=== PATIENT | female | born 1985 | race Caucasian/White ===

== ENCOUNTER → 2019-10-08 | Outpatient (CLI) | payer OTHER ==
--- NOTE | 2019-10-08 11:03 | RADIOLOGY REPORT (SQ) ---
EXAM DESCRIPTION: NOSE/NASAL BONES COMPLETED DATE/TIME: 10/08/2019 9:31 am REASON FOR STUDY: UNSPECIFIED INJURY OF NOSE, INITIAL ENCOUNTER S09.92XA UNSPECIFIED INJURY OF NOSE , INITIAL ENCOUNTER COMPARISON: None. NUMBER OF VIEWS: Three view. TECHNIQUE: Images of the facial bones acquired. LIMITATIONS: None. FINDINGS: ORBITS: No fracture. No foreign body. SINUSES: No mucosal thickening. No air fluid levels. FACIAL BONES: No fracture. OTHER: No other significant finding. IMPRESSION: NO FOREIGN BODY OR FRACTURE OF THE FACIAL BONES. TECHNICAL DOCUMENTATION: JOB ID: [id number] [employer].- All Rights Reserved Reading location - IP/workstation name: [email or web address]
== END ==
LOC: OD 09:01
PROVIDERS: ATTEND Family Medicine
DX: S09.92XA Unspecified injury of nose, initial encounter (principal); X58.XXXA Exposure to other specified factors, initial encounter
CPT/HCPCS: 70160

== ENCOUNTER 2020-11-06 16:36 | Observation (INO) | payer OTHER ==
[2020-11-06] MEDS ORDERED: LORAZEPAM INJ 2 MG/1 ML VIAL IV ONE (17:11)
--- NOTE | 2020-11-06 17:13 | ER Document Report ---
ED Medical Screen (RME) - General Chief Complaint: Tremor Stated Complaint: POSSIBLE SYNCOPE, TREMORS Time Seen by Provider: 11/06/20 17:09 Primary Care Provider: ROSIE SANDOVAL MD [Primary Care Provider] - Follow up as needed Mode of Arrival: Wheelchair Information source: Parent Cannot obtain history due to: Altered mental status TRAVEL OUTSIDE OF THE [place] IN LAST 30 DAYS: No - HPI Patient complains to provider of: seizure Notes: 11/06/20 17:12 Patient here with mother at the bedside. I was called out to the waiting room she was sitting in a wheelchair having seizure-like activity. According to the mother, the patient had a spinal stimulator placed about a year ago. Apparently she had 1 seizure-like activity after having a spinal stimulator placed but none since. She has no history of epilepsy is not on antiepileptic drugs. She apparently had a seizure prior to arrival and then had another seizure while in the waiting room. Patient was noted to have generalized tonic-clonic shaking and was unconscious. She woke up she appeared to be confused. Patient was then immediately taken back to an ER room where she will be seen and evaluated by another provider for further evaluation and management. Exam: Patient noted to be having seizure-like activity out in the waiting room. Generalized tonic-clonic activity was noted. This lasted for approximately 1 to 2 minutes. Patient was confused after this incident. No respiratory distress. An initial examination was made on the patient as part of the triage process, and it was determined a more comprehensive evaluation was necessary. Initial orders were placed and patient was transferred to another provider in the ED who assumed care and finished evaluation and plan. Doctor's Discharge - Discharge Referrals: ROSIE SANDOVAL MD [Primary Care Provider] - Follow up as needed
[2020-11-06 17:42] LABS: ABSOLUTE EOSINOPHILS # (AUTO) 0.1 10^3/uL (0.0-0.6); ABSOLUTE LYMPHOCYTES (AUTO) 2.6 10^3/uL (0.5-4.7); ABSOLUTE MONOCYTES (AUTO) 0.5 10^3/uL (0.1-1.4); ABSOLUTE NEUT (AUTO) 3.4 10^3/uL (1.7-8.2); BASOPHILS % (AUTO) 0.7 % (0-2); EOSINOPHILS % (AUTO) 2.2 % (0-6); HEMATOCRIT 39.9 % (36.0-47.0); HEMOGLOBIN 13.7 g/dL (12.0-15.5); LYMPHOCYTES % (AUTO) 38.1 % (13-45); MEAN CORPUSCULAR HEMOGLOBIN 29.7 pg (27.0-33.4); MEAN CORPUSCULAR HGB CONC 34.4 g/dL (32.0-36.0); MEAN CORPUSCULAR VOLUME 87 fl (80-97); MONOCYTES % (AUTO) 7.7 % (3-13); PLATELET COUNT 275 10^3/uL (150-450); RED BLOOD COUNT 4.61 10^6/uL (3.72-5.28); RED CELL DISTRIBUTION WIDTH 13.8 % (11.5-14.0); SEGMENTED NEUTROPHILS % (AUTO) 51.3 % (42-78); TOTAL CELLS COUNTED % (AUTO) 100 %; WHITE BLOOD COUNT 6.7 10^3/uL (4.0-10.5)
--- NOTE | 2020-11-06 17:52 | RADIOLOGY REPORT (SQ) ---
EXAM DESCRIPTION: CT HEAD WITHOUT IMAGES COMPLETED DATE/TIME: 11/06/2020 5:43 pm REASON FOR STUDY: Seizure COMPARISON: None. TECHNIQUE: Axial images acquired through the brain without intravenous contrast. Images reviewed wi th bone, brain and subdural windows. Additional sagittal and coronal reconstructions were generated. Images stored on PACS. All CT scanners at this facility use dose modulation, iterative reconstruction, and/or weight based d osing when appropriate to reduce radiation dose to as low as reasonably achievable (ALARA). [facility]: Dose Right [facility]: CareDose [facility]: Dose Right [facility]: Teradose 4D [facility]: Smart [employer] RADIATION DOSE: CT Rad equipment meets quality standard of care and radiation dose reduction techniq ues were employed. CTDIvol: 53.2 mGy. DLP: 1044 mGy-cm. mGy. LIMITATIONS: None. FINDINGS: VENTRICLES: Normal size and contour. CEREBRUM: No masses. No hemorrhage. No midline shift. No evidence for acute infarction. Normal gra y/white matter differentiation. No areas of low density in the white matter. CEREBELLUM: No masses. No hemorrhage. No alteration of density. No evidence for acute infarction. EXTRAAXIAL SPACES: No fluid collections. No masses. ORBITS AND GLOBE: No intra- or extraconal masses. Normal contour of globe without masses. CALVARIUM: No fracture. PARANASAL SINUSES: No fluid or mucosal thickening. SOFT TISSUES: No mass or hematoma. OTHER: No other significant finding. IMPRESSION: NORMAL BRAIN CT WITHOUT CONTRAST. EVIDENCE OF ACUTE STROKE: NO. COMMENT: Quality ID # [id number]: Final reports with documentation of one or more dose reduction techniques (e.g., Automated exposure control, adjustment of the mA and/or kV according to patient size, use of iterative reconstruction technique) TECHNICAL DOCUMENTATION: JOB ID: [id number] 2010 [employer]- All Rights Reserved Reading location - IP/workstation name: [email or web address]
[2020-11-06 17:58] LABS: ALBUMIN 4.4 g/dL (3.5-5.0); ALKALINE PHOSPHATASE 81 U/L (38-126); ANION GAP 6 (5-19); ASPARTATE AMINO TRANSFERASE 31 U/L (14-36); BILIRUBIN,DIRECT 0.2 mg/dL (0.0-0.4); BILIRUBIN,TOTAL 0.5 mg/dL (0.2-1.3); BLOOD UREA NITROGEN 12 mg/dL (7-20); CALCIUM 9.8 mg/dL (8.4-10.2); CARBON DIOXIDE 28 mmol/L (22-30); CHLORIDE 102 mmol/L (98-107); GLUCOSE 101 mg/dL (75-110); POTASSIUM 4.2 mmol/L (3.6-5.0); TOTAL PROTEIN 7.3 g/dL (6.3-8.2)
[2020-11-06 18:00] LABS: ALCOHOL < 10 mg/dL (NONE DETECTED)
[2020-11-06 20:53] LABS: APPEARANCE,URINE CLEAR; BILIRUBIN,URINE NEGATIVE (NEGATIVE); COLOR,URINE YELLOW; GLUCOSE, URINE NEGATIVE (NEGATIVE); KETONES,URINE NEGATIVE (NEGATIVE); LEUKOCYTE ESTERASE,URINE NEGATIVE (NEGATIVE); NITRITE,URINE NEGATIVE (NEGATIVE); PROTEIN,URINE NEGATIVE (NEGATIVE); URINE SPECIFIC GRAVITY 1.006; UROBILINOGEN,URINE NEGATIVE mg/dL (<2.0)
[2020-11-06] MEDS ORDERED: NORMAL SALINE 1000 ML 1,000 ML IV ONE (20:53)
--- NOTE | 2020-11-06 20:57 | ER Document Report ---
ED General - General Chief Complaint: Trouble Talking Stated Complaint: POSSIBLE SYNCOPE, TREMORS Time Seen by Provider: 11/06/20 17:09 Mode of Arrival: Wheelchair TRAVEL OUTSIDE OF THE [place] 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 P johann states that she was running around today and taking care of her kids. She went to the fridge to get something to eat and drink as she has not done that all day and she began to feel very lightheaded. She states that she saw flashes of light. Patient then slid down to the floor and hit her head. Her daughter witnessed the event and called the son in the room. They took her over to the couch and gave her juice. The son stated that she looked like she was not breathing normally so they called the ambulance. When the ambulance arrived, patient again felt presyncopal on the way to the truck. Patient was in the waiting room today when she began having what is described as "convulsions" according to records. She was given 2 mg of Ativan. See nursing notes of episode. Patient's mother was with her. She states that she began to have shaking. She was also staring and not responding. The mother states that patient was unable to write normally. She was also slower to respond and confused. This has never happened before. Patient states that she did have a febrile seizure after having a spinal stimulator placed. This is her third spinal stimulator and it was placed in March of this year. Patient also states that she did have a MO in the past due to high blood pressure and cholesterol. She did not have any interventions for that. It has been 1 to 2 years since a cardiac work-up. Patient denies any new headaches or chest pain. She states she does have chronic pain but that is not new. - Related Data Allergies/Adverse Reactions: No Known Allergies Allergy (Unverified 11/06/20 17:44) Past Medical History - General Information source: Patient, Parent - Social History Smoking Status: Never Smoker Chew tobacco use (# tins/day): No Frequency of alcohol use: Social Drug Abuse: None Family History: Reviewed & Not Pertinent Patient has homicidal ideation: No - Past Medical History Cardiac Medical History: Reports: Hx Hypertension Denies: Hx Hypercholesterolemia Review of Systems - Review of Systems Notes: CONSTITUTIONAL: No fever or weight loss. Positive for fatigue. SKIN: No rash. HENT: No congestion, ear pain, or sore throat. EYES: No recent vision problems or eye pain. CARDIOVASCULAR: No chest pain or edema. RESPIRATORY: No cough, congestion, or wheezing. Positive for exertional dyspnea. GASTROINTESTINAL: No abdominal pain, vomiting, diarrhea. Positive for nausea. GENITOURINARY: No dysuria. MUSCULOSKELETAL: No joint pain or swelling. Positive for chronic pain. LYMPHATIC: No swollen glands. NEUROLOGIC: Positive for convulsions versus syncope. Positive for confusion and slower speech. HEMATOLOGIC: No unusual bruising or bleeding. PSYCHIATRIC: No depression or anxiety. Physical Exam - Vital signs Vitals: Resp Pulse Ox 18 100 11/06/20 17:13 11/06/20 17:13 - General General appearance: Appears well In distress: None Notes: VITAL SIGNS: Mild Tachycardia GENERAL: No acute distress, non-toxic appearance. HEAD: Normal with no signs of head trauma. EYES: EOMI, conjunctiva normal, no discharge. EARS: Hearing grossly intact. NOSE: Normal. NECK: Normal range of motion, no tenderness, supple, no lymphadenopathy, No adenopathy, no JVD. CHEST: Clear breath sounds bilaterally. No wheezes, rales, or rhonchi. CARDIAC: Regular rate and rhythm. VASCULAR: No Edema. ABDOMEN: Normal and soft with no tenderness, no masses or pulsatile masses. MUSCULOSKELETAL: Good range of motion of all major joints. Extremities without clubbing, cyanosis or edema. NEUROLOGICAL: Alert and oriented x 3. Follows commands appropriately. Patient's mother states that her speech is slower. She has a slight left facial droop which they are unsure the duration of it. Extremities equally bilaterally. Sensation is intact bilaterally. PSYCHIATRIC: Normal Affect, judgement and mood. SKIN: Normal appearance with no rashes or lesions. Course - Re-evaluation Re-evalutation: 11/06/20 21:01 Patient also mentions that she has had exertional dyspnea for several weeks walking from the house to the mailbox which is unusual for her. Her symptoms may be due to dehydration versus another cause of syncope. As she does have a cardiac history, I will discuss with her PCP about possible admission for echocardiogram and further work-up. She will be hydrated. So far, her results are nondiagnostic. I discussed with Dr. Hatch who recommended we obtain a CTA of her head and neck, BNP, D-dimer. She is unable to have an MRI due to the spinal stimulator. He states he will admit her. After patient returned from CT scan, her spinal stimulator is hurting her. She agitated and is stuttering and unable to get her words out. She keeps pointing to her right flank. She then states that she needs Dilaudid for pain. I reviewed all results with the patient and her mother. She will be admitted to the hospital for further care. I am unsure if she had a syncopal event or a seizure. I have low suspicion for a stroke. 11/07/20 05:51 - Vital Signs Vital signs: Temp Pulse Resp BP Pulse Ox 97.6 F 86 16 115/82 99 11/07/20 03:44 11/07/20 03:44 11/07/20 03:44 11/07/20 03:44 11/07/20 03:44 - Laboratory Results Result Diagrams: 11/06/20 17:25 11/06/20 17:25 Laboratory Results Interpreted: 11/06/20 17:25 Sodium 136.2 L Critical Laboratory Results Reviewed: No Critical Results - Radiology Results Critical Radiology Results Reviewed: No Critical Results - EKG Interpretation by Me EKG shows normal: Sinus rhythm Rate: Tachycardia Rhythm: NSR When compared to previous EKG there are: Previous EKG unavailable Additional EKG results interpreted by me: 11/06/20 21:03 Sinus tachycardia at a rate of 118. QTc 455. Artifact present. No acute ST changes. Previous EKG not available. Discharge - Discharge Clinical Impression: Syncope Qualifiers: Syncope type: unspecified Qualified Code(s): R55 - Syncope and collapse Altered mental status Qualifiers: Altered mental status type: unspecified Qualified Code(s): R41.82 - Altered mental status, unspecified Condition: Stable Disposition: ADMITTED OBSERVATION Admitting Provider: Holden
[2020-11-06 21:13] LABS: URINE BARBITURATES SCREEN NEGATIVE; URINE BENZODIAZEPINES SCREEN NEGATIVE; URINE COCAINE SCREEN NEGATIVE; URINE MARIJUANA (THC) SCREEN NEGATIVE; URINE METHADONE SCREEN NEGATIVE; URINE PHENCYCLIDINE SCREEN NEGATIVE
[2020-11-06 21:15] LABS: URINE AMPHETAMINES SCREEN UNCONFIRMED POSITIVE
--- NOTE | 2020-11-06 21:47 | RADIOLOGY REPORT (SQ) ---
EXAM DESCRIPTION: CHEST SINGLE VIEW CLINICAL HISTORY: 35 years Female, syncope COMPARISON: None. FINDINGS: Lungs: Lungs are clear. No pneumonia or edema. No pneumothorax or pleural effusion. Mediastinum: Cardiac and mediastinal silhouette are normal. Bones: There is mild curvature of the thoracic spine convex right. Spinal stimulator lead projects over the spine. IMPRESSION: No acute process. No pneumonia or edema.
[2020-11-06] MEDS ORDERED: OXYCODONE-ACETAMINOPHEN 5-325 MG TABLET PO ONE (22:10)
[2020-11-06] MEDS ORDERED: OXYCODONE-ACETAMINOPHEN 5-325 MG TABLET PO PRN (22:31)
[2020-11-06] MEDS ORDERED: ACETAMINOPHEN 325 MG TABLET PO PRN (22:31)
[2020-11-06] MEDS ORDERED: ONDANSETRON HCL INJ/PF 4 MG/2 ML SDV IV PRN (22:31)
--- NOTE | 2020-11-06 23:37 | EKG REPORT ---
SEVERITY:- BORDERLINE ECG - SINUS TACHYCARDIA INFERIOR Q WAVES, PROBABLY NORMAL VARIATION BORDERLINE T WAVE ABNORMALITIES : Confirmed by: Barney Purvis 06-Nov-2020 23:36:31
[2020-11-06 23:42] LABS: CREATINE KINASE MB 1.53 ng/mL (<4.55); TROPONIN I < 0.012 ng/mL
[2020-11-06] MEDS ORDERED: HYDROMORPHONE HCL INJ/PF 2 MG/ML AMPULE IV ONE (23:46)
--- NOTE | 2020-11-07 00:10 | RADIOLOGY REPORT (SQ) ---
CT angiogram head and neck with contrast on 11/06/2020 at 11:29 PM CLINICAL INDICATION: TIA, seizure TECHNIQUE: Multiple axial images are obtained throughout the head and neck following the administration of IV contrast. Computer-generated 3-D reconstruction/MIPS were performed. NASCET criteria was utilized for stenosis evaluation in the neck. This exam was performed according to our departmental dose-optimization program, which includes automated exposure control, adjustment of the mA and/or kV according to patient size and/or use of iterative reconstruction technique. Total DLP is 618.14 mGy*cm. COMPARISON: CT head from 11/06/2020 FINDINGS: CTA NECK: There is a normal appearance of the aortic arch with three great vessels originating off the aortic arch without stenosis of the proximal great vessels. The bilateral vertebral arteries are codominant and form a normal-appearing basilar artery with no vertebrobasilar stenosis. There is no significant plaque or stenosis in the right common or internal carotid artery. There is no significant plaque or stenosis in the left common or internal carotid artery. There is no adenopathy, mass or fluid collection in the neck. CTA HEAD: There is a normal appearance of the [place] and intracranial vasculature. There is no aneurysm, vascular malformation or significant stenosis. The dural venous sinuses are patent with no evidence of dural venous sinus thrombosis. IMPRESSION: 1. No evidence of carotid or vertebral artery stenosis. 2. Unremarkable CT angiogram of the head.
[2020-11-07] MEDS ORDERED: METHOCARBAMOL 750 MG TABLET PO ONE (04:15)
[2020-11-07] MEDS: HYDROMORPHONE HCL 2 MG TABLET PO PRN ×3 (04:42→18:34)
[2020-11-07] MEDS: ZOLPIDEM TARTRATE 5 MG TABLET PO PRN ×2 (04:42→20:59)
[2020-11-07 06:44] LABS: CREATINE KINASE MB 1.72 ng/mL (<4.55)
[2020-11-07 06:49] LABS: TROPONIN I < 0.012 ng/mL
--- NOTE | 2020-11-07 08:29 | PDOC CONSULTATION ---
Consultation Consult Date: 11/07/20 Attending physician:: ROSIE SANDOVAL Provider Consulted: MARYSOL BUCHANAN Consult reason:: Altered mental status History of Present Illness Admission Date/PCP: 11/06/20 22:44 ROSIE SANDOVAL MD History of Present Illness: LULY LOPEZ is a 35 year old female known to me from 2 prior outpatient visits in the office who is consulted to our service for syncopal event. The patient has a history of hypertension, hyperlipidemia, ADHD, fibromyalgia, migraine headaches, syncope in the past, anxiety treated by psychiatrist/psychologist, she is a lifelong nonsmoker, with family history of coronary artery disease in her father who had stents placed in his early 60s, chronic pain and allergies who had been in her usual state of health until March 2020. She states that she underwent a procedure to change her spinal stimulator and after that "my body was rejecting it". She states that she had been in a lot of pain, medications were not working, apparently the device was not relieving her pain and started to notice involuntary twitching and jerking movements particularly in the lower extremities. At one point she states that she had a fever in May of July 2020 and at that time she was reevaluated by her neurosurgeon however I do not know the outcome of that evaluation however the patient states that she continued to do poorly. The day prior to admission she was at her mental health provider requesting medication refills specifically her Cymbalta and Nuvigil. She states that at that time her blood pressure was 137/97 with a heart rate of 148 bpm which she attributed to being out of her psychiatric medications. She did not have any particular symptoms therefore she attended physical therapy and states that she "aced" the session. She did notice some lower extremity shaking/twitching but states she finished PT without any complications. While walking out of that office she felt dizzy and lightheaded, she was helped to a table and lay down, her legs were elevated and she was given something to drink at which time she felt better and eventually went home. While at home she was informed that her youngest daughter had been diagnosed with chickenpox and spent the day cleaning and sanitizing the house. At one point she went to the fridge to get something to drink and felt very weak, dizzy and lightheaded. She states that she does not remember much after that but was told by her youngest daughter that she slid to the floor and eventually was helped to a couch where her son noticed that she was unresponsive and started to have some discoloration around her lips reason why EMS was called. While waiting in the ER sitting in a wheelchair she had another event where she was noted to have jerking movements and was diaphoretic, for details please see nursing notes. Of note, she has had a complete cardiac work-up within the last year without any significant findings as described below. This morning she has no specific cardiac complaints but continues to have pain particularly to the right side of her back. Her telemetry shows sinus tachycardia. Physical exam on 11/07/2020: GENERAL: Sleeping comfortably, easily arousable. Pleasant and conversational. Oriented x3 with normal mood. Not in acute distress. Mildly obese. Well groomed and well developed. HEENT: Normocephalic, atraumatic. Pupils equal. Sclerae anicteric. Oropharynx dry. NECK: No JVD. No carotid bruits. LUNGS: Clear to auscultation bilaterally. Normal respiratory effort without the use of accessory muscles or intercostal retractions. CARDIOVASCULAR: Regular rate and rhythm, normal S1 and S2 without murmurs, rubs, or gallops. PMI not displaced. EXTREMITIES: No edema, no cyanosis, no clubbing. +2 pulses femoral and pedal pulses bilaterally. SKIN: No lesions or rashes. MUSCULOSKELETAL: No chest tenderness to palpation. NEUROLOGIC: Nonfocal. No gross sensory or motor deficits bilateral upper or lower extremities. Cardiac studies: Echocardiogram on 12/27/2019: -The patient was tachycardic during the study. -EF greater than 65%. -Diastolic function could not be assessed due to fusion of the E and A waves. -No regional wall motion normalities. -Mild MR, mild TR. Lexiscan nuclear stress test on 01/16/2020: -Normal perfusion with no evidence of infarct or ischemia. -Normal wall motion. -Preserved resting left ventricular systolic ejection fraction at 56%. Outpatient cardiac rhythm monitoring 10/12/2019 through 10/26/2019: -Predominant rhythm is sinus with sinus tachycardia during daytime hours. -Events correlated with normal sinus rhythm and sinus tachycardia. -Rare PACs and rare PVCs. -No malignant dysrhythmias or pauses. Past Medical History Cardiac Medical History: Reports: Hypertension Denies: Hyperlipidema Psychiatric Medical History: Reports: Depression Social History Smoking Status: Never Smoker Electronic Cigarette use?: No Frequency of Alcohol Use: Occasional Hx Recreational Drug Use: No Hx Prescription Drug Abuse: No Family History Family History: Reviewed & Not Pertinent Parental Family History Reviewed: Yes Children Family History Reviewed: Yes Sibling(s) Family History Reviewed.: Yes Medication/Allergy Allergies/Adverse Reactions: No Known Allergies Allergy (Unverified 11/06/20 17:44) Physical Exam Vital Signs: Temp Pulse Resp BP Pulse Ox 97.6 F 86 16 115/82 99 11/07/20 03:44 11/07/20 03:44 11/07/20 03:44 11/07/20 03:44 11/07/20 03:44 Intake & Output 11/05/20 11/06/20 11/07/20 06:59 06:59 06:59 Intake Total 1000 Output Total 500 Balance 500 Weight 81.8 kg Results Laboratory Results: 11/06/20 17:25 11/06/20 17:25 11/06/20 11/06/20 11/06/20 17:25 17:25 17:25 WBC 6.7 RBC 4.61 Hgb 13.7 Hct 39.9 MCV 87 MCH 29.7 MCHC 34.4 RDW 13.8 Plt Count 275 Seg Neutrophils % 51.3 Sodium 136.2 L Potassium 4.2 Chloride 102 Carbon Dioxide 28 Anion Gap 6 BUN 12 Creatinine 0.75 Est GFR ( Amer) > 60 Glucose 101 Calcium 9.8 Magnesium 1.9 Total Bilirubin 0.5 AST 31 Alkaline Phosphatase 81 Total Protein 7.3 Albumin 4.4 Serum HCG, Qual NEGATIVE Urine Color Urine Appearance Urine pH Ur Specific [place] Urine Protein Urine Glucose (UA) Urine Ketones Urine Blood Urine Nitrite Ur Leukocyte Esterase Urine WBC (Auto) 11/06/20 19:53 WBC RBC Hgb Hct MCV MCH MCHC RDW Plt Count Seg Neutrophils % Sodium Potassium Chloride Carbon Dioxide Anion Gap BUN Creatinine Est GFR ( Amer) Glucose Calcium Magnesium Total Bilirubin AST Alkaline Phosphatase Total Protein Albumin Serum HCG, Qual Urine Color YELLOW Urine Appearance CLEAR Urine pH 7.0 Ur Specific [place] 1.006 Urine Protein NEGATIVE Urine Glucose (UA) NEGATIVE Urine Ketones NEGATIVE Urine Blood NEGATIVE Urine Nitrite NEGATIVE Ur Leukocyte Esterase NEGATIVE Urine WBC (Auto) 2 11/06/20 11/06/20 11/06/20 17:25 22:53 22:53 Creatine Kinase 147 H CK-MB (CK-2) 1.53 Troponin I < 0.012 < 0.012 NT-Pro-B Natriuret Pep 11/06/20 11/07/20 11/07/20 22:53 05:13 05:13 Creatine Kinase 175 H CK-MB (CK-2) 1.72 Troponin I < 0.012 NT-Pro-B Natriuret Pep < 11 Impressions: Head CT 11/06/20 17:10 IMPRESSION: NORMAL BRAIN CT WITHOUT CONTRAST. EVIDENCE OF ACUTE STROKE: NO. Chest X-Ray 11/06/20 20:51 IMPRESSION: No acute process. No pneumonia or edema. Head CTA 11/06/20 22:02 IMPRESSION: 1. No evidence of carotid or vertebral artery stenosis. 2. Unremarkable CT angiogram of the head. Neck CTA 11/06/20 22:02 IMPRESSION: 1. No evidence of carotid or vertebral artery stenosis. 2. Unremarkable CT angiogram of the head. 11/06/20 17:25 11/06/20 17:25 MCV 87 fl (80-97) 11/06/20 17:25 MCH 29.7 pg (27.0-33.4) 11/06/20 17:25 MCHC 34.4 g/dL (32.0-36.0) 11/06/20 17:25 RDW 13.8 % (11.5-14.0) 11/06/20 17:25 Seg Neutrophils % 51.3 % (42-78) 11/06/20 17:25 Chloride 102 mmol/L (98-107) 11/06/20 17:25 Carbon Dioxide 28 mmol/L (22-30) 11/06/20 17:25 Anion Gap 6 (5-19) 11/06/20 17:25 Est GFR ( Amer) > 60 (>60) 11/06/20 17:25 Glucose 101 mg/dL (75-110) 11/06/20 17:25 Calcium 9.8 mg/dL (8.4-10.2) 11/06/20 17:25 Magnesium 1.9 mg/dL (1.6-2.3) 11/06/20 17:25 Total Bilirubin 0.5 mg/dL (0.2-1.3) 11/06/20 17:25 AST 31 U/L (14-36) 11/06/20 17:25 Alkaline Phosphatase 81 U/L (38-126) 11/06/20 17:25 Total Protein 7.3 g/dL (6.3-8.2) 11/06/20 17:25 Albumin 4.4 g/dL (3.5-5.0) 11/06/20 17:25 Serum HCG, Qual NEGATIVE (NEGATIVE) 11/06/20 17:25 Urine Color YELLOW 11/06/20 19:53 Urine Appearance CLEAR 11/06/20 19:53 Urine pH 7.0 (5.0-9.0) 11/06/20 19:53 Ur Specific [place] 1.006 11/06/20 19:53 Urine Protein NEGATIVE mg/dL (NEGATIVE) 11/06/20 19:53 Urine Glucose (UA) NEGATIVE mg/dL (NEGATIVE) 11/06/20 19:53 Urine Ketones NEGATIVE mg/dL (NEGATIVE) 11/06/20 19:53 Urine Blood NEGATIVE (NEGATIVE) 11/06/20 19:53 Urine Nitrite NEGATIVE (NEGATIVE) 11/06/20 19:53 Ur Leukocyte Esterase NEGATIVE (NEGATIVE) 11/06/20 19:53 Urine WBC (Auto) 2 /HPF 11/06/20 19:53 11/06/20 11/06/20 11/06/20 17:25 22:53 22:53 Creatine Kinase 147 H CK-MB (CK-2) 1.53 Troponin I < 0.012 < 0.012 NT-Pro-B Natriuret Pep 11/06/20 11/07/20 11/07/20 22:53 05:13 05:13 Creatine Kinase 175 H CK-MB (CK-2) 1.72 Troponin I < 0.012 NT-Pro-B Natriuret Pep < 11 Current Medication List Generic Name Dose Route Start Last Admin Trade Name Freq PRN Reason Stop Dose Admin Acetaminophen 650 mg 11/06/20 22:31 Acetaminophen 325 Mg Tablet PO 12/06/20 22:30 Q4HP PRN FOR PAIN OR TEMP Docusate Sodium 100 mg 11/07/20 10:00 Docusate Sodium 100 Mg Capsule PO 12/07/20 09:59 DAILY BRYAN Enoxaparin Sodium 40 mg 11/07/20 10:00 Enoxaparin Sodium Inj 40 Mg/0.4 Ml Disp.Syrin SUBCUT 12/07/20 09:59 DAILY BRYAN Hydromorphone HCl 2 mg 11/07/20 04:19 11/07/20 04:42 Hydromorphone Hcl 2 Mg Tablet PO 11/14/20 04:18 2 mg Q4HP PRN Administration PAIN Influenza Virus Vaccine Quadrival 0.5 ml 11/08/20 08:00 Influenza Quad (6mos+) Vac 0.5 Ml Syr IM 11/08/20 08:01 .ONCE ONE Methocarbamol 750 mg 11/07/20 04:15 Methocarbamol 750 Mg Tablet PO 12/07/20 04:14 Q4HP PRN PAIN Ondansetron HCl 4 mg 11/06/20 22:31 Ondansetron Hcl Inj/Pf 4 Mg/2 Ml Sdv IV 12/06/20 22:30 Q4HP PRN FOR NAUSEA/VOMITING Zolpidem Tartrate 10 mg 11/07/20 04:17 11/07/20 04:42 Zolpidem Tartrate 5 Mg Tablet PO 11/14/20 04:16 10 mg HSP PRN Administration SLEEP OR INSOMNIA Discontinued Medications Generic Name Dose Route Start Last Admin Trade Name Freq PRN Reason Stop Dose Admin Hydromorphone HCl 0.5 mg 11/06/20 23:46 11/06/20 23:59 Hydromorphone Hcl Inj/Pf 2 Mg/Ml Ampule IV 11/06/20 23:47 0.5 mg NOW ONE Administration Sodium Chloride 1,000 mls @ 0 mls/hr 11/06/20 20:53 11/07/20 00:19 Nacl 0.9% 1000 Ml Iv Soln IV 11/06/20 20:54 Infused BOLUS ONE Infusion Wide Open Lorazepam 2 mg 11/06/20 17:11 11/06/20 17:29 Lorazepam Inj 2 Mg/1 Ml Vial IV 11/06/20 17:12 2 mg NOW ONE Administration Methocarbamol 750 mg 11/07/20 04:15 11/07/20 04:42 Methocarbamol 750 Mg Tablet PO 11/07/20 04:16 750 mg NOW ONE Administration Oxycodone/Acetaminophen 1 tab 11/06/20 22:10 11/06/20 22:34 Oxycodone-Acetaminophen 5-325 Mg Tablet PO 11/06/20 22:11 1 tab NOW ONE Administration Oxycodone/Acetaminophen 1 tab 11/06/20 22:31 Oxycodone-Acetaminophen 5-325 Mg Tablet PO 11/13/20 22:30 Q6HP PRN FOR PAIN Assessment & Plan - Diagnosis (1) Syncope Qualifiers: Syncope type: unspecified Qualified Code(s): R55 - Syncope and collapse Is this a current diagnosis for this admission?: Yes Plan: The patient has a known history of presyncope and syncope in the past. She states that at some point she had been on metoprolol but was told to discontinue it. I last saw her in the office in December 2019 and at that point she was recommended to have her Adderall switched to a different medication and there was a plan to start a beta-enoch but she did not return for follow-up and was never begun on on a beta-enoch by myself. Her physical exam this morning is only remarkable for sinus tachycardia and dry oral mucosa. Her cardiovascular work-up in the past had been unrevealing. From the description of her most recent event at home it appears that the patient did have another vasovagal s yncopal event. Recommendations: -Increase fluid intake. -Increase sodium intake. -Continue with cardiac telemetry for another 24 hours to ensure no dysrhythmias. -Consider starting the patient on low-dose metoprolol, Toprol-XL 25 mg daily. -I will arrange for EP evaluation upon discharge.
--- NOTE | 2020-11-07 08:59 | PDOC H&P ---
History of Present Illness Admission Date/PCP: 11/06/20 22:44 ROSIE SANDOVAL MD History of Present Illness: LULY LOPEZ is a 35 year old female Altered mental status passing outIs a 35-year-old female with a history of the fibromyalgia chronic pain syndrome status post this stimulator multiple pain medications history of the hypertensions history of the syncopal episode seizure-like activity in the pastAnd history of the psych issues currently follow with the pain management psychiatrist as outpatient have a complete neuro work-up done seen in neurology as outpatient also cardiology work-up done by Dr. Cline within the last 1 year was all normal Patient is brought to the emergency department because according to the patient she was taking care of her kids not eating very well yesterday and patient is feeling weak patient have a presyncopal type of episodes at home with the daughter was a witness and patient was called at this point EMS EMS brought to the patient in the ER where patient have a seizures like activity and patient at this point have a CT of the head CT angiogram of the neck and head was all negative Patient EKG was normal cardiac enzyme was normal Patient's chest x-ray D-dimer is all normal Patient was admitting in the hospital for further evaluations for the syncopal episode When I saw the patient on the floor patient is alert awake oriented x4 patient's denied any chest pain no shortness of the breath no contact with any Covid no Covid-like symptoms Patient seen by Dr. Cline filter pulp washer and suggest to start the patient on Toprol-XL 25 mg eating patient have a most likely vasovagal syncopal episode and he wants to refer the patient in the wood hacker for further evaluation as outpatient Discussed with the patient's very extensively regarding the all the current test reports as per discussed with the Dr. Cline Patient understand very well will monitor for next 24 hours get the physical therapy evaluations Again patient have multiple pain medications psych medications discussed with the patient's to talk to the pain management psych Patient unable to get the MRI due to the spinal stimulator Past Medical History Cardiac Medical History: Reports: Hypertension Denies: Hyperlipidema Musculoskeltal Medical History: Reports: Arthritis, Fibromyalgia Musculoskeletal History Note: Chronic pain syndrome chronic back pain spinal stimulator Psychiatric Medical History: Reports: Depression Social History Information Source: Patient Smoking Status: Never Smoker Electronic Cigarette use?: No Frequency of Alcohol Use: Occasional Hx Recreational Drug Use: No Hx Prescription Drug Abuse: No Family History Family History: Reviewed & Not Pertinent Parental Family History Reviewed: Yes Children Family History Reviewed: Yes Sibling(s) Family History Reviewed.: Yes Medication/Allergy Allergies/Adverse Reactions: No Known Allergies Allergy (Unverified 11/06/20 17:44) Review of Systems Constitutional: PRESENT: weakness. ABSENT: chills, fever(s), headache(s), weight gain, weight loss Eyes: ABSENT: visual disturbances Ears: ABSENT: hearing changes Cardiovascular: ABSENT: chest pain, dyspnea on exertion, edema, orthropnea, palpitations Respiratory: ABSENT: cough, hemoptysis Gastrointestinal: ABSENT: abdominal pain, constipation, diarrhea, hematemesis, hematochezia, nausea, vomiting Genitourinary: ABSENT: dysuria, hematuria Musculoskeletal: ABSENT: joint swelling Integumentary: ABSENT: rash, wounds Neurological: ABSENT: abnormal gait, abnormal speech, confusion, dizziness, focal weakness, syncope Psychiatric: ABSENT: anxiety, depression, homidical ideation, suicidal ideation Endocrine: ABSENT: cold intolerance, heat intolerance, menstrual abnormalities, polydipsia, polyuria Hematologic/Lymphatic: ABSENT: easy bleeding, easy bruising, lymphadenopathy Physical Exam Vital Signs: Temp Pulse Resp BP Pulse Ox 97.6 F 89 16 115/82 99 11/07/20 03:44 11/07/20 07:00 11/07/20 03:44 11/07/20 03:44 11/07/20 03:44 Intake & Output 11/06/20 11/07/20 11/08/20 06:59 06:59 06:59 Intake Total 1000 Output Total 500 Balance 500 Weight 81.8 kg General appearance: PRESENT: no acute distress, well-developed, well-nourished Head exam: PRESENT: atraumatic, normocephalic Eye exam: PRESENT: conjunctiva pink, EOMI, PERRLA. ABSENT: scleral icterus Ear exam: PRESENT: normal external ear exam Mouth exam: PRESENT: moist, tongue midline Neck exam: PRESENT: full ROM. ABSENT: carotid bruit, JVD, lymphadenopathy, thyromegaly Respiratory exam: PRESENT: clear to auscultation alize Cardiovascular exam: PRESENT: RRR. ABSENT: diastolic murmur, rubs, systolic murmur Pulses: PRESENT: normal dorsalis pedis pul, +2 pedal pulses bilateral Vascular exam: PRESENT: normal capillary refill GI/Abdominal exam: PRESENT: normal bowel sounds, soft. ABSENT: distended, guarding, mass, organolmegaly, rebound, tenderness Rectal exam: PRESENT: deferred Musculoskeletal exam: PRESENT: ambulatory Neurological exam: PRESENT: alert, awake, oriented to person, oriented to place, oriented to time, oriented to situation, reflexes normal, CN II-XII grossly intact, normal gait. ABSENT: motor sensory deficit Psychiatric exam: PRESENT: appropriate affect, normal mood. ABSENT: homicidal ideation, suicidal ideation Skin exam: PRESENT: dry, intact, warm. ABSENT: cyanosis, rash Results Laboratory Results: 11/06/20 17:25 11/06/20 17:25 11/06/20 11/06/20 11/06/20 17:25 17:25 17:25 WBC 6.7 RBC 4.61 Hgb 13.7 Hct 39.9 MCV 87 MCH 29.7 MCHC 34.4 RDW 13.8 Plt Count 275 Seg Neutrophils % 51.3 Sodium 136.2 L Potassium 4.2 Chloride 102 Carbon Dioxide 28 Anion Gap 6 BUN 12 Creatinine 0.75 Est GFR ( Amer) > 60 Glucose 101 Calcium 9.8 Magnesium 1.9 Total Bilirubin 0.5 AST 31 Alkaline Phosphatase 81 Total Protein 7.3 Albumin 4.4 Serum HCG, Qual NEGATIVE Urine Color Urine Appearance Urine pH Ur Specific [place] Urine Protein Urine Glucose (UA) Urine Ketones Urine Blood Urine Nitrite Ur Leukocyte Esterase Urine WBC (Auto) 11/06/20 19:53 WBC RBC Hgb Hct MCV MCH MCHC RDW Plt Count Seg Neutrophils % Sodium Potassium Chloride Carbon Dioxide Anion Gap BUN Creatinine Est GFR ( Amer) Glucose Calcium Magnesium Total Bilirubin AST Alkaline Phosphatase Total Protein Albumin Serum HCG, Qual Urine Color YELLOW Urine Appearance CLEAR Urine pH 7.0 Ur Specific [place] 1.006 Urine Protein NEGATIVE Urine Glucose (UA) NEGATIVE Urine Ketones NEGATIVE Urine Blood NEGATIVE Urine Nitrite NEGATIVE Ur Leukocyte Esterase NEGATIVE Urine WBC (Auto) 2 11/06/20 11/06/20 11/06/20 17:25 22:53 22:53 Creatine Kinase 147 H CK-MB (CK-2) 1.53 Troponin I < 0.012 < 0.012 NT-Pro-B Natriuret Pep 11/06/20 11/07/20 11/07/20 22:53 05:13 05:13 Creatine Kinase 175 H CK-MB (CK-2) 1.72 Troponin I < 0.012 NT-Pro-B Natriuret Pep < 11 Impressions: Head CT 11/06/20 17:10 IMPRESSION: NORMAL BRAIN CT WITHOUT CONTRAST. EVIDENCE OF ACUTE STROKE: NO. Chest X-Ray 11/06/20 20:51 IMPRESSION: No acute process. No pneumonia or edema. Head CTA 11/06/20 22:02 IMPRESSION: 1. No evidence of carotid or vertebral artery stenosis. 2. Unremarkable CT angiogram of the head. Neck CTA 11/06/20 22:02 IMPRESSION: 1. No evidence of carotid or vertebral artery stenosis. 2. Unremarkable CT angiogram of the head. Assessment & Plan - Diagnosis (1) Syncope Qualifiers: Syncope type: unspecified Qualified Code(s): R55 - Syncope and collapse Is this a current diagnosis for this admission?: Yes Plan: Patient CT scan of the head even the CTA of the neck and the head is all negative Patient seen by the neurology outpatients for the seizure-like activity not confirm any seizures no need for any antiseizures medications Most likely as per discussed with the cardiology vasovagal syncopal episode As per the filter pulp washer patient was started the beta-enoch Advised to drink more water and more sodium in the dietAs per cardiology suggestions (2) Hypertension Qualifiers: Hypertension type: essential hypertension Qualified Code(s): I10 - Essential (primary) hypertension Is this a current diagnosis for this admission?: Yes Plan: Continues on low-dose beta-enoch (3) Fibromyalgia Is this a current diagnosis for this admission?: Yes Plan: Patient is currently follow with the psych and the pain management (4) Chronic pain syndrome Is this a current diagnosis for this admission?: Yes Plan: Discussed with the patient's to follow-up with the pain management to further evaluate about the pain medications may be reduce the some of the pain medications dose (5) Major depression Qualifiers: Major depression recurrence: recurrent Major depression episode severity: moderate Is this a current diagnosis for this admission?: Yes Plan: Patient is to follow a psychiatrist as an outpatient - Time Time Spent: 50 to 70 Minutes Medications reviewed and adjusted accordingly: Yes Anticipated Discharge Disposition: Home, Self Care Anticipated Discharge Timeframe: within 24 hours - Inpatient Certification Based on my medical assessment, after consideration of the patient's comorbidities, presenting symptoms, or acuity I expect that the services needed warrant INPATIENT care.: Yes I certify that my determination is in accordance with my understanding of Medicare's requirements for reasonable and necessary INPATIENT services [42 CFR 412.3e].: Yes Medical Necessity: Significant Comorbidiites Make Outpatient Treatment Too Risky, Need For IV Fluids Post Hospital Care: D/C Engine Head Repairer Documentation - Plan Summary Plan Summary: Discussed with the patient's about the all the test reports discussed with the filter pulp washer most likely vasovagal syncopal episode continues to monitor for next 24-hour physical therapy evaluations
[2020-11-07] MEDS: NORMAL SALINE 1000 ML 1,000 ML IV PRN ×2 (09:27→18:34)
[2020-11-07] MEDS: METOPROLOL SUCCINATE 25 MG TAB.SR.24H PO SCH (09:27)
[2020-11-07] MEDS: ENOXAPARIN SODIUM INJ 40 MG/0.4 ML DISP.SYRIN SUBCUT SCH (09:27)
[2020-11-07] MEDS: METHOCARBAMOL 750 MG TABLET PO PRN ×2 (09:27→14:16)
[2020-11-07] MEDS: DOCUSATE SODIUM 100 MG CAPSULE PO SCH (09:41)
[2020-11-07] MEDS ORDERED: HYDROCODONE/ACETAMINOPHEN 10-325 MG TABLET PO PRN (10:53)
[2020-11-07] MEDS ORDERED: TIZANIDINE HCL 4 MG TABLET PO PRN (10:53)
[2020-11-07] MEDS ORDERED: (PENDING PHARMACY ID) (Zolpidem Tartrate [Ambien] 10 MG Tablet) PO PRN (10:53)
[2020-11-07] MEDS ORDERED: ESZOPICLONE 3 MG PO PRN (10:53)
[2020-11-07] MEDS ORDERED: METHOCARBAMOL 750 MG TABLET PO PRN (10:53)
[2020-11-07] MEDS ORDERED: ZOLPIDEM TARTRATE 5 MG TABLET PO PRN (11:00)
[2020-11-07 11:58] LABS: CREATINE KINASE MB 1.51 ng/mL (<4.55)
[2020-11-07] MEDS ORDERED: HYDROCODONE/ACETAMINOPHEN 5-325 MG TABLET PO PRN (12:10)
[2020-11-07 12:15] LABS: TROPONIN I < 0.012 ng/mL
[2020-11-07] MEDS ORDERED: DULOXETINE HCL 30 MG CAPSULE.DR PO ONE (14:30)
[2020-11-07] MEDS ORDERED: PANTOPRAZOLE SODIUM 40 MG TABLET.DR PO ONE (14:30)
[2020-11-07] MEDS ORDERED: ALPRAZOLAM 0.5 MG TABLET PO ONE (14:30)
[2020-11-07] MEDS ORDERED: CETIRIZINE 10 MG TABLET PO ONE (14:30)
[2020-11-07] MEDS ORDERED: KETOROLAC TROMETHAMINE INJ/PF 30 MG/1 ML SDV IV ONE (15:00)
[2020-11-07] MEDS ORDERED: AMPHETAMINE PO SCH (18:00)
[2020-11-07] MEDS ORDERED: [UNRECOGNIZED DRUG - OTHER] PO SCH (18:00)
[2020-11-07] MEDS ORDERED: DEXTROAMPHETAMINE PO SCH (18:00)
--- NOTE | 2020-11-08 07:28 | PDOC PROGRESS REPORT ---
Subjective Date:: 11/08/20 Subjective:: LULY LOPEZ is a 35 year old female known to me from 2 prior outpatient visits in the office who is consulted to our service for syncopal event. The patient has a history of hypertension, hyperlipidemia, ADHD, fibromyalgia, migraine headaches, syncope in the past, anxiety treated by psychiatrist/psychologist, she is a lifelong nonsmoker, with family history of coronary artery disease in her father who had stents placed in his early 60s, chronic pain and allergies who had been in her usual state of health until March 2020. She states that she underwent a procedure to change her spinal stimulator and after that "my body was rejecting it". She states that she had been in a lot of pain, medications were not working, apparently the device was not relieving her pain and started to notice involuntary twitching and jerking movements particularly in the lower extremities. At one point she states that she had a fever in MayJuly 2020 and at that time she was reevaluated by her neurosurgeon however I do not know the outcome of that evaluation however the patient states that she continued to do poorly. The day prior to admission she was at her mental health provider requesting medication refills specifically her Cymbalta and Nuvigil. She states that at that time her blood pressure was 137/97 with a heart rate of 148 bpm which she attributed to being out of her psychiatric medications. She did not have any particular symptoms therefore she attended physical therapy and states that she "aced" the session. She did notice some lower extremity shaking/twitching but states she finished PT without any complications. While walking out of that office she felt dizzy and lightheaded, she was helped to a table and lay down, her legs were elevated and she was given something to drink at which time she felt better and eventually went home. While at home she was informed that her youngest daughter had been diagnosed with chickenpox and spent the day cleaning and sanitizing the house. At one point she went to the fridge to get something to drink and felt very weak, dizzy and lightheaded. She states that she does not remember much after that but was told by her youngest daughter that she slid to the floor and eventually was helped to a couch where her son noticed that she was unresponsive and started to have some discoloration around her lips reason why EMS was called. While waiting in the ER sitting in a wheelchair she had another event where she was noted to have jerking movements and was diaphoretic, for details please see nursing notes. Of note, she has had a complete cardiac work-up within the last year without any significant findings as described below. This morning she has no specific cardiac complaints but continues to have pain particularly to the right side of her back. Her telemetry shows sinus tachycardia. 11/08/2020: The patient had an uneventful night. She was begun on Toprol-XL 25 mg daily. Her heart rate is now well controlled. She is found sleeping comfortably and wakes up easily. She denies cardiovascular complaints and actually states that she feels much better. Her telemetry shows normal sinus rhythm with few episodes of sinus tachycardia. Physical exam on 11/08/2020: GENERAL: Sleeping comfortably, easily arousable. Pleasant and conversational. Oriented x3 with normal mood. Not in acute distress. Mildly obese. Well groomed and well developed. HEENT: Normocephalic, atraumatic. Pupils equal. Sclerae anicteric. Oropharynx dry. NECK: No JVD. No carotid bruits. LUNGS: Clear to auscultation bilaterally. Normal respiratory effort without the use of accessory muscles or intercostal retractions. CARDIOVASCULAR: Regular rate and rhythm, normal S1 and S2 without murmurs, rubs, or gallops. PMI not displaced. EXTREMITIES: No edema, no cyanosis, no clubbing. +2 pulses femoral and pedal p ulses bilaterally. SKIN: No lesions or rashes. MUSCULOSKELETAL: No chest tenderness to palpation. NEUROLOGIC: Nonfocal. No gross sensory or motor deficits bilateral upper or lower extremities. Cardiac studies: Echocardiogram on 12/27/2019: -The patient was tachycardic during the study. -EF greater than 65%. -Diastolic function could not be assessed due to fusion of the E and A waves. -No regional wall motion normalities. -Mild MR, mild TR. Lexiscan nuclear stress test on 01/16/2020: -Normal perfusion with no evidence of infarct or ischemia. -Normal wall motion. -Preserved resting left ventricular systolic ejection fraction at 56%. Outpatient cardiac rhythm monitoring 10/12/2019 through 10/26/2019: -Predominant rhythm is sinus with sinus tachycardia during daytime hours. -Events correlated with normal sinus rhythm and sinus tachycardia. -Rare PACs and rare PVCs. -No malignant dysrhythmias or pauses. Reason For Visit: SYNCOPE, HYPERTENSION Physical Exam Vital Signs: Temp Pulse Resp BP Pulse Ox 97.8 F 76 18 112/79 97 11/08/20 03:20 11/08/20 03:20 11/08/20 03:20 11/08/20 03:20 11/08/20 03:20 Intake & Output 11/06/20 11/07/20 11/08/20 06:59 06:59 06:59 Intake Total 1000 2240 Output Total 500 400 Balance 500 1840 Weight 81.8 kg Results Laboratory Results: 11/06/20 17:25 11/06/20 17:25 11/06/20 11/06/20 11/06/20 17:25 22:53 22:53 Creatine Kinase 147 H CK-MB (CK-2) 1.53 Troponin I < 0.012 < 0.012 NT-Pro-B Natriuret Pep 11/06/20 11/07/20 11/07/20 22:53 05:13 05:13 Creatine Kinase 175 H CK-MB (CK-2) 1.72 Troponin I < 0.012 NT-Pro-B Natriuret Pep < 11 11/07/20 11/07/20 10:58 10:58 Creatine Kinase 165 H CK-MB (CK-2) 1.51 Troponin I < 0.012 NT-Pro-B Natriuret Pep Impressions: Head CT 11/06/20 17:10 IMPRESSION: NORMAL BRAIN CT WITHOUT CONTRAST. EVIDENCE OF ACUTE STROKE: NO. Chest X-Ray 11/06/20 20:51 IMPRESSION: No acute process. No pneumonia or edema. Head CTA 11/06/20 22:02 IMPRESSION: 1. No evidence of carotid or vertebral artery stenosis. 2. Unremarkable CT angiogram of the head. Neck CTA 11/06/20 22:02 IMPRESSION: 1. No evidence of carotid or vertebral artery stenosis. 2. Unremarkable CT angiogram of the head. 11/06/20 17:25 11/06/20 17:25 MCV 87 fl (80-97) 11/06/20 17:25 MCH 29.7 pg (27.0-33.4) 11/06/20 17:25 MCHC 34.4 g/dL (32.0-36.0) 11/06/20 17:25 RDW 13.8 % (11.5-14.0) 11/06/20 17:25 Seg Neutrophils % 51.3 % (42-78) 11/06/20 17:25 Chloride 102 mmol/L (98-107) 11/06/20 17:25 Carbon Dioxide 28 mmol/L (22-30) 11/06/20 17:25 Anion Gap 6 (5-19) 11/06/20 17:25 Est GFR ( Amer) > 60 (>60) 11/06/20 17:25 Glucose 101 mg/dL (75-110) 11/06/20 17:25 Calcium 9.8 mg/dL (8.4-10.2) 11/06/20 17:25 Magnesium 1.9 mg/dL (1.6-2.3) 11/06/20 17:25 Total Bilirubin 0.5 mg/dL (0.2-1.3) 11/06/20 17:25 AST 31 U/L (14-36) 11/06/20 17:25 Alkaline Phosphatase 81 U/L (38-126) 11/06/20 17:25 Total Protein 7.3 g/dL (6.3-8.2) 11/06/20 17:25 Albumin 4.4 g/dL (3.5-5.0) 11/06/20 17:25 Serum HCG, Qual NEGATIVE (NEGATIVE) 11/06/20 17:25 Urine Color YELLOW 11/06/20 19:53 Urine Appearance CLEAR 11/06/20 19:53 Urine pH 7.0 (5.0-9.0) 11/06/20 19:53 Ur Specific [place] 1.006 11/06/20 19:53 Urine Protein NEGATIVE mg/dL (NEGATIVE) 11/06/20 19:53 Urine Glucose (UA) NEGATIVE mg/dL (NEGATIVE) 11/06/20 19:53 Urine Ketones NEGATIVE mg/dL (NEGATIVE) 11/06/20 19:53 Urine Blood NEGATIVE (NEGATIVE) 11/06/20 19:53 Urine Nitrite NEGATIVE (NEGATIVE) 11/06/20 19:53 Ur Leukocyte Esterase NEGATIVE (NEGATIVE) 11/06/20 19:53 Urine WBC (Auto) 2 /HPF 11/06/20 19:53 11/06/20 11/06/20 11/06/20 17:25 22:53 22:53 Creatine Kinase 147 H CK-MB (CK-2) 1.53 Troponin I < 0.012 < 0.012 NT-Pro-B Natriuret Pep 11/06/20 11/07/20 11/07/20 22:53 05:13 05:13 Creatine Kinase 175 H CK-MB (CK-2) 1.72 Troponin I < 0.012 NT-Pro-B Natriuret Pep < 11 11/07/20 11/07/20 10:58 10:58 Creatine Kinase 165 H CK-MB (CK-2) 1.51 Troponin I < 0.012 NT-Pro-B Natriuret Pep Current Medication List Generic Name Dose Route Start Last Admin Trade Name Freq PRN Reason Stop Dose Admin Acetaminophen 650 mg 11/06/20 22:31 Acetaminophen 325 Mg Tablet PO 12/06/20 22:30 Q4HP PRN FOR PAIN OR TEMP Hydrocodone Bitart/Acetaminophen 1 tab 11/07/20 12:10 Hydrocodone/Acetaminophen 5-325 Mg Tablet PO 11/14/20 12:09 BIDP PRN FOR PAIN Alprazolam 0.5 mg 11/08/20 10:00 Alprazolam 0.5 Mg Tablet PO 11/15/20 09:59 DAILY [facility] Cetirizine HCl 10 mg 11/08/20 10:00 Cetirizine 10 Mg Tablet PO 12/08/20 09:59 DAILY BRYAN Docusate Sodium 100 mg 11/07/20 10:00 11/07/20 09:41 Docusate Sodium 100 Mg Capsule PO 12/07/20 09:59 Not Given DAILY BRYAN Duloxetine HCl 120 mg 11/08/20 10:00 Duloxetine Hcl 30 Mg Capsule.Dr PO 12/08/20 09:59 DAILY BRYAN Enoxaparin Sodium 40 mg 11/07/20 10:00 11/07/20 09:27 Enoxaparin Sodium Inj 40 Mg/0.4 Ml Disp.Syrin SUBCUT 12/07/20 09:59 40 mg DAILY BRYAN Administration Hydromorphone HCl 2 mg 11/07/20 04:19 11/07/20 18:34 Hydromorphone Hcl 2 Mg Tablet PO 11/14/20 04:18 2 mg Q4HP PRN Administration PAIN Sodium Chloride 1,000 mls @ 125 mls/hr 11/07/20 08:34 11/07/20 18:34 Nacl 0.9% 1000 Ml Iv Soln IV 12/07/20 08:33 125 mls/hr CONTINUOUS PRN Administration THIS MED IS NOT "PRN" Influenza Virus Vaccine Quadrival 0.5 ml 11/08/20 08:00 Influenza Quad (6mos+) Vac 0.5 Ml Syr IM 11/08/20 08:01 .ONCE ONE Methocarbamol 750 mg 11/07/20 04:15 11/07/20 14:16 Methocarbamol 750 Mg Tablet PO 12/07/20 04:14 750 mg Q4HP PRN Administration PAIN Metoprolol Succinate 25 mg 11/07/20 10:00 11/07/20 09:27 Metoprolol Succinate 25 Mg Tab.Sr.24h PO 12/07/20 09:59 25 mg DAILY BRYAN Administration Ondansetron HCl 4 mg 11/06/20 22:31 Ondansetron Hcl Inj/Pf 4 Mg/2 Ml Sdv IV 12/06/20 22:30 Q4HP PRN FOR NAUSEA/VOMITING Pantoprazole Sodium 40 mg 11/08/20 08:00 Pantoprazole Sodium 40 Mg Tablet. PO 12/08/20 07:59 QAM [facility] Patient Own Medication 250 mg 11/08/20 10:00 Armodafinil [Nuvigil] PO 12/08/20 09:59 DAILY [facility] Patient Own Medication 10 mg 11/07/20 18:00 Dextroamphetamine/Amphetamine [Adderall 10 Mg Tablet] PO 12/07/20 17:59 BID [facility] Patient Own Medication 3 mg 11/07/20 10:53 Eszopiclone [Eszopiclone] PO HSP PRN FOR SLEEP Tizanidine HCl 4 mg 11/07/20 10:53 11/07/20 20:59 Tizanidine Hcl 4 Mg Tablet PO 12/07/20 10:52 4 mg HSP PRN Administration MUSCLE SPASMS Zolpidem Tartrate 10 mg 11/07/20 04:17 11/07/20 20:59 Zolpidem Tartrate 5 Mg Tablet PO 11/14/20 04:16 10 mg HSP PRN Administration SLEEP OR INSOMNIA Discontinued Medications Generic Name Dose Route Start Last Admin Trade Name Freq PRN Reason Stop Dose Admin Hydrocodone Bitart/Acetaminophen 1 tab 11/07/20 10:53 Hydrocodone/Acetaminophen 10-325 Mg Tablet PO 11/14/20 10:52 BIDP PRN FOR PAIN Alprazolam 0.5 mg 11/07/20 14:30 11/07/20 14:10 Alprazolam 0.5 Mg Tablet PO 11/07/20 14:31 0.5 mg NOW ONE Administration Cetirizine HCl 10 mg 11/07/20 14:30 11/07/20 14:10 Cetirizine 10 Mg Tablet PO 11/07/20 14:31 10 mg NOW ONE Administration Duloxetine HCl 120 mg 11/07/20 14:30 11/07/20 14:10 Duloxetine Hcl 30 Mg Capsule.Dr PO 11/07/20 14:31 120 mg NOW ONE Administration Hydromorphone HCl 0.5 mg 11/06/20 23:46 11/06/20 23:59 Hydromorphone Hcl Inj/Pf 2 Mg/Ml Ampule IV 11/06/20 23:47 0.5 mg NOW ONE Administration Sodium Chloride 1,000 mls @ 0 mls/hr 11/06/20 20:53 11/07/20 00:19 Nacl 0.9% 1000 Ml Iv Soln IV 11/06/20 20:54 Infused BOLUS ONE Infusion Wide Open Ketorolac Tromethamine 10 mg 11/07/20 15:00 11/07/20 15:13 Ketorolac Tromethamine Inj/Pf 30 Mg/1 Ml Sdv IV 11/07/20 15:01 10 mg NOW ONE Administration Lorazepam 2 mg 11/06/20 17:11 11/06/20 17:29 Lorazepam Inj 2 Mg/1 Ml Vial IV 11/06/20 17:12 2 mg NOW ONE Administration Methocarbamol 750 mg 11/07/20 04:15 11/07/20 04:42 Methocarbamol 750 Mg Tablet PO 11/07/20 04:16 750 mg NOW ONE Administration Methocarbamol 750 mg 11/07/20 10:53 Methocarbamol 750 Mg Tablet PO 12/07/20 10:52 TIDP PRN MUSCLE SPASMS Oxycodone/Acetaminophen 1 tab 11/06/20 22:10 11/06/20 22:34 Oxycodone-Acetaminophen 5-325 Mg Tablet PO 11/06/20 22:11 1 tab NOW ONE Administration Oxycodone/Acetaminophen 1 tab 11/06/20 22:31 Oxycodone-Acetaminophen 5-325 Mg Tablet PO 11/13/20 22:30 Q6HP PRN FOR PAIN Pantoprazole Sodium 40 mg 11/07/20 14:30 11/07/20 14:10 Pantoprazole Sodium 40 Mg Tablet.Dr PO 11/07/20 14:31 40 mg NOW ONE Administration Zolpidem Tartrate 10 mg 11/07/20 11:00 Zolpidem Tartrate 5 Mg Tablet PO 11/14/20 10:59 HSP PRN FOR SLEEP Assessment & Plan - Diagnosis (1) Syncope Qualifiers: Syncope type: unspecified Qualified Code(s): R55 - Syncope and collapse Is this a current diagnosis for this admission?: Yes Plan: No more recurrence of index symptoms. She was begun on low-dose Toprol with good results. Her heart rate is better controlled and she feels 100% better. Her telemetry has been benign and without any complex cardiac dysrhythmias. Recommendations: -Increase fluid intake. -Increase sodium intake. -Avoid the standing position for more than 20 minutes at a time. -Continue with current medical management. -The patient may be discharged home from the cardiovascular standpoint. -I will arrange for cardiology outpatient follow-up particularly referral to EP.
[2020-11-08] MEDS ORDERED: INFLUENZA QUAD (6MOS+) 2020-21 VAC 0.5 ML SYR IM ONE (08:00)
[2020-11-08] MEDS ORDERED: PANTOPRAZOLE SODIUM 40 MG TABLET.DR PO SCH (08:00)
[2020-11-08] MEDS: DOCUSATE SODIUM 100 MG CAPSULE PO SCH (09:15)
[2020-11-08] MEDS: ALPRAZOLAM 0.5 MG TABLET PO SCH ×2 (09:18→09:32)
[2020-11-08] MEDS: METOPROLOL SUCCINATE 25 MG TAB.SR.24H PO SCH (09:18)
[2020-11-08] MEDS: HYDROMORPHONE HCL 2 MG TABLET PO PRN (09:18)
[2020-11-08] MEDS: ENOXAPARIN SODIUM INJ 40 MG/0.4 ML DISP.SYRIN SUBCUT SCH (09:18)
[2020-11-08] MEDS: NORMAL SALINE 1000 ML 1,000 ML IV PRN (09:21)
[2020-11-08] MEDS ORDERED: DULOXETINE HCL 30 MG CAPSULE.DR PO SCH (10:00)
[2020-11-08] MEDS ORDERED: ARMODAFINIL 250 MG PO SCH (10:00)
[2020-11-08] MEDS ORDERED: ESOMEPRAZOLE MAGNESIUM 40 MG PO SCH (10:00)
[2020-11-08] MEDS ORDERED: CETIRIZINE 10 MG TABLET PO SCH (10:00)
[2020-11-08] MEDS ORDERED: (PENDING PHARMACY ID) (Duloxetine Hcl [Cymbalta] 60 MG Capsule.Dr) PO SCH (10:00)
--- NOTE | 2020-11-08 11:13 | PDOC DISCHARGE SUMMARY ---
Impression - Admit/DC Date/PCP Admission Date/Primary Care Provider: 11/06/20 22:44 ROSIE SANDOVAL MD Discharge Date: 11/15/20 - Discharge Diagnosis (1) Syncope Is this a current diagnosis for this admission?: Yes (2) Hypertension Is this a current diagnosis for this admission?: Yes (3) Fibromyalgia Is this a current diagnosis for this admission?: Yes (4) Chronic pain syndrome Is this a current diagnosis for this admission?: Yes (5) Major depression Is this a current diagnosis for this admission?: Yes - Additional Information Discharge Diet: Regular Referrals: ROSIE SANDOVAL MD [Primary Care Provider] - Follow up as needed MARYSOL CLINE MD [ACTIVE PROVISIONAL STAFF] - Prescriptions: Metoprolol Succinate [Toprol Xl 25 mg Tab.sr] 25 mg PO DAILY #30 tab.sr.24h Home Medications: Alprazolam [Xanax 0.5 mg Tablet] 0.5 mg PO DAILY 11/07/20 Armodafinil [Nuvigil] 250 mg PO DAILY 11/07/20 Cetirizine HCl [Zyrtec 10 mg Tablet] 10 mg PO DAILY 11/07/20 Dextroamphetamine/Amphetamine [Adderall 10 mg Tablet] 10 mg PO BID 11/07/20 Duloxetine HCl [Cymbalta] 120 mg PO DAILY 11/07/20 Esomeprazole Magnesium 40 mg PO DAILY 11/07/20 Eszopiclone 3 mg PO HSP PRN 11/07/20 Hydrocodone/Acetaminophen [Sharon 5-325 mg Tablet] 1 tab PO BIDP PRN 11/07/20 Methocarbamol [Robaxin 750 mg Tablet] 750 mg PO TIDP PRN 11/07/20 Tizanidine HCl [Zanaflex 4 mg Tablet] 4 mg PO HSP PRN 11/07/20 Zolpidem Tartrate [Ambien] 10 mg PO HSP PRN 11/07/20 Metoprolol Succinate [Toprol Xl 25 mg Tab.sr] 25 mg PO DAILY #30 tab.sr.24h 11/08/20 History of Present Illiness History of Present Illness: LULY LOPEZ is a 35 year old female Altered mental status passing outIs a 35-year-old female with a history of the fibromyalgia chronic pain syndrome status post this stimulator multiple pain medications history of the hypertensions history of the syncopal episode seizure-like activity in the pastAnd history of the psych issues currently follow with the pain management psychiatrist as outpatient have a complete neuro work-up done seen in neurology as outpatient also cardiology work-up done by Dr. Cline within the last 1 year was all normal Patient is brought to the emergency department because according to the patient she was taking care of her kids not eating very well yesterday and patient is feeling weak patient have a presyncopal type of episodes at home with the daughter was a witness and patient was called at this point EMS EMS brought to the patient in the ER where patient have a seizures like activity and patient at this point have a CT of the head CT angiogram of the neck and head was all negative Patient EKG was normal cardiac enzyme was normal Patient's chest x-ray D-dimer is all normal Patient was admitting in the hospital for further evaluations for the syncopal episode When I saw the patient on the floor patient is alert awake oriented x4 patient's denied any chest pain no shortness of the breath no contact with any Covid no Covid-like symptoms Patient seen by Dr. Cline research program internship and suggest to start the patient on Toprol-XL 25 mg eating patient have a most likely vasovagal syncopal episode and he wants to refer the patient in the alteration inspector for further evaluation as outpatient Discussed with the patient's very extensively regarding the all the current test reports as per discussed with the Dr. Cline Patient understand very well will monitor for next 24 hours get the physical therapy evaluations Again patient have multiple pain medications psych medications discussed with the patient's to talk to the pain management psych Patient unable to get the MRI due to the spinal stimulator Hospital Course Hospital Course: Is a 35-year-old female with multiple medical problems as above admitting in the hospital for syncopal episode patient have a CT of the head neck was all negative patient is seen by cardiology and suggest most likely vasovagal syncopal episode at the beta-enoch and suggest to follow outpatient alteration inspector he will make arrangement Patient otherwise doing very well on the discharge denied any chest pain no shortness of the breath patient had no episode in the telemetry No further syncopal episode Discussed with the patient and the family about increasing the more fluid eating more salty food Follow-up outpatient alteration inspector and Dr. Cline Patient already see outpatients neurology have a several work-up done for the seizures like activity Patient is otherwise no seizures episodes fully alert awake oriented Also discussed with the patient about to follow the pain management to adjust the pain medications according to the patient she usually take the anti- inflammatory medications not taking the stronger pain medication at home suggest to be avoid the any strong narcotics but patients follow with the pain management for that Physical Exam Vital Signs: Temp Pulse Resp BP Pulse Ox 97.8 F 78 16 124/81 96 11/08/20 10:00 11/08/20 09:02 11/08/20 09:02 11/08/20 09:02 11/08/20 09:02 Intake & Output 11/07/20 11/08/20 11/09/20 06:59 06:59 06:59 Intake Total 1000 3240 Output Total 500 400 Balance 500 2840 Weight 81.8 kg 84.4 kg General appearance: PRESENT: no acute distress, well-developed, well-nourished Head exam: PRESENT: atraumatic, normocephalic Eye exam: PRESENT: conjunctiva pink, EOMI, PERRLA. ABSENT: scleral icterus Ear exam: PRESENT: normal external ear exam Mouth exam: PRESENT: moist, tongue midline Neck exam: ABSENT: carotid bruit, JVD, lymphadenopathy, thyromegaly Respiratory exam: PRESENT: clear to auscultation alize. ABSENT: rales, rhonchi, wheezes Cardiovascular exam: PRESENT: RRR. ABSENT: diastolic murmur, rubs, systolic murmur Pulses: PRESENT: normal dorsalis pedis pul Vascular exam: PRESENT: normal capillary refill GI/Abdominal exam: PRESENT: normal bowel sounds, soft. ABSENT: distended, guarding, mass, organolmegaly, rebound, tenderness Rectal exam: PRESENT: deferred Extremities exam: PRESENT: full ROM. ABSENT: calf tenderness, clubbing, pedal edema Neurological exam: PRESENT: alert, awake, oriented to person, oriented to place, oriented to time, oriented to situation, CN II-XII grossly intact. ABSENT: motor sensory deficit Psychiatric exam: PRESENT: appropriate affect, normal mood. ABSENT: homicidal ideation, suicidal ideation Skin exam: PRESENT: dry, intact, warm. ABSENT: cyanosis, rash Results Laboratory Results: WBC 6.7 10^3/uL (4.0-10.5) 11/06/20 17:25 RBC 4.61 10^6/uL (3.72-5.28) 11/06/20 17:25 Hgb 13.7 g/dL (12.0-15.5) 11/06/20 17:25 Hct 39.9 % (36.0-47.0) 11/06/20 17:25 MCV 87 fl (80-97) 11/06/20 17:25 MCH 29.7 pg (27.0-33.4) 11/06/20 17:25 MCHC 34.4 g/dL (32.0-36.0) 11/06/20 17:25 RDW 13.8 % (11.5-14.0) 11/06/20 17:25 Plt Count 275 10^3/uL (150-450) 11/06/20 17:25 Lymph % (Auto) 38.1 % (13-45) 11/06/20 17:25 [place] % (Auto) 7.7 % (3-13) 11/06/20 17:25 Eos % (Auto) 2.2 % (0-6) 11/06/20 17:25 Baso % (Auto) 0.7 % (0-2) 11/06/20 17:25 Absolute Neuts (auto) 3.4 10^3/uL (1.7-8.2) 11/06/20 17:25 Absolute Lymphs (auto) 2.6 10^3/uL (0.5-4.7) 11/06/20 17:25 Absolute Monos (auto) 0.5 10^3/uL (0.1-1.4) 11/06/20 17:25 Absolute Eos (auto) 0.1 10^3/uL (0.0-0.6) 11/06/20 17:25 Absolute Basos (auto) 0.0 10^3/uL (0.0-0.2) 11/06/20 17:25 Seg Neutrophils % 51.3 % (42-78) 11/06/20 17:25 D-Dimer < 0.27 ug/mL (0.00-0.50) 11/06/20 22:53 Sodium 136.2 mmol/L (137-145) L 11/06/20 17:25 Potassium 4.2 mmol/L (3.6-5.0) 11/06/20 17:25 Chloride 102 mmol/L (98-107) 11/06/20 17:25 Carbon Dioxide 28 mmol/L (22-30) 11/06/20 17:25 Anion Gap 6 (5-19) 11/06/20 17:25 BUN 12 mg/dL (7-20) 11/06/20 17:25 Creatinine 0.75 mg/dL (0.52-1.25) 11/06/20 17:25 Est GFR ( Amer) > 60 (>60) 11/06/20 17:25 Est GFR (MDRD) Non-Af > 60 (>60) 11/06/20 17:25 Glucose 101 mg/dL (75-110) 11/06/20 17:25 Calcium 9.8 mg/dL (8.4-10.2) 11/06/20 17:25 Magnesium 1.9 mg/dL (1.6-2.3) 11/06/20 17:25 Total Bilirubin 0.5 mg/dL (0.2-1.3) 11/06/20 17:25 Direct Bilirubin 0.2 mg/dL (0.0-0.4) 11/06/20 17:25 Neonat Total Bilirubin Not Reportable 11/06/20 17:25 Neonat Direct Bilirubin Not Reportable 11/06/20 17:25 Neonat Indirect Bili Not Reportable 11/06/20 17:25 AST 31 U/L (14-36) 11/06/20 17:25 ALT 22 U/L (<35) 11/06/20 17:25 Alkaline Phosphatase 81 U/L (38-126) 11/06/20 17:25 Creatine Kinase 165 U/L (30-135) H 11/07/20 10:58 CK-MB (CK-2) 1.51 ng/mL (<4.55) 11/07/20 10:58 Troponin I < 0.012 ng/mL 11/07/20 10:58 NT-Pro-B Natriuret Pep < 11 pg/mL (<125) 11/06/20 22:53 Total Protein 7.3 g/dL (6.3-8.2) 11/06/20 17:25 Albumin 4.4 g/dL (3.5-5.0) 11/06/20 17:25 Serum HCG, Qual NEGATIVE (NEGATIVE) 11/06/20 17:25 Urine Color YELLOW 11/06/20 19:53 Urine Appearance CLEAR 11/06/20 19:53 Urine pH 7.0 (5.0-9.0) 11/06/20 19:53 Ur Specific [place] 1.006 11/06/20 19:53 Urine Protein NEGATIVE mg/dL (NEGATIVE) 11/06/20 19:53 Urine Glucose (UA) NEGATIVE mg/dL (NEGATIVE) 11/06/20 19:53 Urine Ketones NEGATIVE mg/dL (NEGATIVE) 11/06/20 19:53 Urine Blood NEGATIVE (NEGATIVE) 11/06/20 19:53 Urine Nitrite NEGATIVE (NEGATIVE) 11/06/20 19:53 Urine Bilirubin NEGATIVE (NEGATIVE) 11/06/20 19:53 Urine Urobilinogen NEGATIVE mg/dL (<2.0) 11/06/20 19:53 Ur Leukocyte Esterase NEGATIVE (NEGATIVE) 11/06/20 19:53 Urine WBC (Auto) 2 /HPF 11/06/20 19:53 Urine Bacteria (Auto) TRACE /HPF 11/06/20 19:53 Squamous Epi Cells Auto 1 /HPF 11/06/20 19:53 Urine Mucus (Auto) RARE /LPF 11/06/20 19:53 Urine Ascorbic Acid NEGATIVE (NEGATIVE) 11/06/20 19:53 Urine Opiates Screen NEGATIVE 11/06/20 19:53 Urine Methadone Screen NEGATIVE 11/06/20 19:53 Ur Barbiturates Screen NEGATIVE 11/06/20 19:53 Ur Phencyclidine Scrn NEGATIVE 11/06/20 19:53 Ur Amphetamines Screen UNCONFIRMED POSITIVE 11/06/20 19:53 U Benzodiazepines Scrn NEGATIVE 11/06/20 19:53 Urine Cocaine Screen NEGATIVE 11/06/20 19:53 U Marijuana (THC) Screen NEGATIVE 11/06/20 19:53 Serum Alcohol < 10 mg/dL (NONE DETECTED) 11/06/20 17:25 11/06/20 11/06/20 11/06/20 17:25 22:53 22:53 CK-MB (CK-2) 1.53 Troponin I < 0.012 < 0.012 NT-Pro-B Natriuret Pep < 11 11/07/20 11/07/20 05:13 10:58 CK-MB (CK-2) 1.72 1.51 Troponin I < 0.012 < 0.012 NT-Pro-B Natriuret Pep Impressions: Head CT 11/06/20 17:10 IMPRESSION: NORMAL BRAIN CT WITHOUT CONTRAST. EVIDENCE OF ACUTE STROKE: NO. Chest X-Ray 11/06/20 20:51 IMPRESSION: No acute process. No pneumonia or edema. Head CTA 11/06/20 22:02 IMPRESSION: 1. No evidence of carotid or vertebral artery stenosis. 2. Unremarkable CT angiogram of the head. Neck CTA 11/06/20 22:02 IMPRESSION: 1. No evidence of carotid or vertebral artery stenosis. 2. Unremarkable CT angiogram of the head. Plan Time Spent: Greater than 30 Minutes - Outpatients cardiology for further evaluations and follow outpatients continues to neurology Stroke Is this a Stroke Patient?: No Acute Heart Failure Is this a Heart Failure Patient?: No
[2020-11-08 11:14] VITALS: BP 140/88
== END 2020-11-08 13:18 | disposition home or self-care (01) ==
LOC: ER 16:36 → INTOOBSV 22:44 → EH 22:44 → 3S 11-07 01:45
PROVIDERS: ADMIT Family Medicine; ATTEND Family Medicine
DX: R55 Syncope and collapse (principal); I10 Essential (primary) hypertension; M79.7 Fibromyalgia; G89.4 Chronic pain syndrome; R41.82 Altered mental status, unspecified; F41.9 Anxiety disorder, unspecified; E66.9 Obesity, unspecified; R00.0 Tachycardia, unspecified; R53.1 Weakness; F33.1 Major depressive disorder, recurrent, moderate; F90.9 Attention-deficit hyperactivity disorder, unspecified type; I25.2 Old myocardial infarction; M19.90 Unspecified osteoarthritis, unspecified site; Z87.820 Personal history of traumatic brain injury; Z96.82 Presence of neurostimulator; Z79.899 Other long term (current) drug therapy; Z82.49 Family history of ischemic heart disease and other diseases of the circulatory system; Z86.79 Personal history of other diseases of the circulatory system; Z23 Encounter for immunization
CPT/HCPCS: 93005; 99285; 96361; 96374; 36415 ×2; 82553 ×2; 80307 ×2; 82550 ×2; 83735; 84703; 85025; 80053; 81001; 84484 ×2; 85379; 83880; 71045; 70450; 70496; 70498; 90686; 93010; 97116; 97162; 92521; G0378 ×2; G0008; J3490 ×4; J1885; J1650 ×2; J1170; J2060; J7030 ×3; 90471